=== PATIENT | female | born 1970 | race Caucasian/White ===

== ENCOUNTER → 2017-06-29 | Outpatient (CLI) | payer OTHER ==
[~2017-06-29] MED LIST: AMITRIPTYLINE 550 MG PO; BACTRIM DS 8001 TA1 PO; CALCIUM 600 + V1 TAB PO; CALCIUM 600/VIT1 CA1 PO; CLINDAMYCIN HC300 MG PO; FLEXERIL10 M1 PO; LEVAQUIN500 MG PO; METAMUCIL3.4 GM/DOS PO; OXYCODONE HCL10 MG PO; OXYCODONE HYDRO10 MG PO; OXYCODONE20 MG PO; OXYCONTIN 20MG.20 MG PO; PAXIL20 MG PO; PAXIL40 MG PO; PERCOCET 650 MG1 TAB PO; PHENERGAN 25MG.25 M1 PO; TEMAZEPAM30 M1 PO; TEMAZEPAM30 MG PO
[2017-06-29 08:42] LABS: BUN 14 mg/dL (7-18)
[2017-06-29 08:44] LABS: GFR (ESTIMATED) 67 ML/MIN (59-)
[2017-06-29 09:10] LABS: URINE BILIRUBIN - DIPSTICK NEGATIVE (NEG); URINE BLOOD NEGATIVE (NEG)
[2017-06-29 09:18] LABS: URINE SQUAMOUS CELLS OCC #/hpf (0-5)
[2017-06-29 09:20] LABS: AMPHETAMINES/METAMPHETAMINES NEGATIVE ng/mL (<1000)
[2017-07-03 07:36] LABS: Opiates Negative (Cutoff=100)
== END ==
LOC: LAB 07:20
PROVIDERS: Internal Medicine Adolescent Medicine
DX: G89.4 Chronic pain syndrome (principal); Z51.81 Encounter for therapeutic drug level monitoring; N39.0 Urinary tract infection, site not specified; E03.9 Hypothyroidism, unspecified; Z00.00 Encounter for general adult medical examination without abnormal findings

== ENCOUNTER → 2017-07-06 | Outpatient (CLI) | payer OTHER ==
--- NOTE | 2017-07-06 18:05 | RADIOLOGY REPORT PS360 ---
HAND-RT 3 VIEWS HISTORY: RIGHT HAND PAIN ORDERING PHYSICIAN: David Henao MD PATIENT AGE: 47 years COMPARISON: None FINDINGS: No fracture or dislocation. No lytic or blastic change. There is normal mineralization. The joint spaces are well-preserved. No significant degenerative/arthritic changes. No erosive changes evident. Ring artifact is present along the proximal phalanx of the fourth digit IMPRESSION: Negative, no acute finding
== END ==
LOC: RAD 17:26
DX: M79.641 Pain in right hand (principal)